=== PATIENT | male | born 1965 | race Hispanic/Latino ===

== ENCOUNTER 2020-03-24 18:08 | Inpatient (IN) | payer BC, MEDICAID ==
[~2020-03-24] VITALS: Ht 170.2 cm; Wt 84.9 kg
[2020-03-24 18:27] LABS: APPEARANCE,URINE Clear (CLEAR); BILIRUBIN,URINE Negative (NEGATIVE); COLOR,URINE Yellow (YELLOW); GLUCOSE, URINE (UA) Negative (NEGATIVE); KETONES,URINE Trace mg/dL (NEGATIVE); LEUKOCYTE ESTERASE ,URINE Negative (NEGATIVE); NITRATE,URINE Negative (NEGATIVE); OCCULT BLOOD,URINE Negative (NEGATIVE); PROTEIN,URINE Negative (NEGATIVE)
[2020-03-24 18:35] LABS: AMPHET/METH SCREEN,URINE NEGATIVE (NEGATIVE); BARBITURATE SCREEN, URINE NEGATIVE (NEGATIVE); BENZODIAZEPINES SCREEN,URINE NEGATIVE (NEGATIVE); CANNABINOID SCREEN,URINE NEGATIVE (NEGATIVE); COCAINE SCREEN,URINE NEGATIVE (NEGATIVE); OPIATE SCREEN,URINE NEGATIVE (NEGATIVE); PHENCYCLIDINE SCREEN,URINE NEGATIVE (NEGATIVE)
[2020-03-24 18:40] LABS: BASOPHILS % (AUTO) 0.6 % (0.0-5.0); EOSINOPHILS % (AUTO) 0.9 % (0.0-8.0); HEMATOCRIT 47.6 % (42-54); LYMPHOCYTES % (AUTO) 18.5 % (21.0-51.0); MEAN CORPUSCULAR HEMOGLOBIN 33.1 pg (27.0-33.0); MEAN CORPUSCULAR HGB CONC 35.7 g/dL (32.0-36.0); MEAN CORPUSCULAR VOLUME 92.8 fL (79-99); MONOCYTES % (AUTO) 6.2 % (3.0-13.0); NEUTROPHILS % (AUTO) 73.5 % (40.0-77.0); PLATELET COUNT (AUTO) 89 K/uL (130-400); RED BLOOD CELL COUNT(AUTO) 5.13 MIL/uL (4.50-6.20); RED CELL DISTRIBUTION WIDTH 13.1 % (11.0-15.5); WHITE BLOOD COUNT (AUTO) 11.8 K/uL (4.8-10.8)
[2020-03-24 18:52] LABS: CREATININE 1.2 mg/dL (0.5-1.5); POTASSIUM 3.7 mmol/L (3.5-5.1)
[2020-03-24 18:55] LABS: INR 0.99 (0.85-1.15); PARTIAL THROMBOPLASTIN TIME 27.5 SEC (26.3-35.5); PROTHROMBIN TIME 10.7 SEC (9.6-11.6)
[2020-03-24 18:57] LABS: ALBUMIN 4.4 g/dL (3.5-5.0); BILIRUBIN,TOTAL 0.9 mg/dL (0.2-1.0); MAGNESIUM 1.9 mg/dL (1.80-2.40); TOTAL PROTEIN, SERUM 7.8 g/dL (6.0-8.3)
[2020-03-24 19:03] LABS: BACTERIA,URINE Rare /HPF (None Seen); SQUAMOUS EPITHELIAL CELL,UR Few /HPF (0-2)
[2020-03-24] MEDS ORDERED: THIAMINE HCL 100 MG/ML 2ML VIAL ONE (19:06)
[2020-03-24] MEDS ORDERED: CEFTRIAXONE SODIUM 1 GM ONE (20:44)
[2020-03-24] MEDS ORDERED: LACTULOSE 20 GM/30 ML UDCUP PO PRN (20:45)
[2020-03-24] MEDS ORDERED: PHARMACY COMMUNICATION MISC PRN (20:45)
[2020-03-24] MEDS ORDERED: ACETAMINOPHEN 325 MG TAB PO PRN (20:45)
[2020-03-24] MEDS: CEFTRIAXONE SODIUM 1 GM IV SCH (20:45)
[2020-03-24] MEDS ORDERED: CHLORDIAZEPOXIDE HCL 25 MG CAP PO PRN ×2 (20:45)
[2020-03-24] MEDS ORDERED: ONDANSETRON HCL 4 MG/2 ML VIAL IV PRN (20:45)
[2020-03-24] MEDS ORDERED: HYDRALAZINE HCL 20 MG/ML VIAL IV PRN (20:45)
[2020-03-24] MEDS ORDERED: LORAZEPAM 2 MG/ML 1 ML VIAL IVP PRN ×2 (20:45)
[2020-03-24] MEDS ORDERED: ONDANSETRON HCL 4 MG/2 ML VIAL ONE (20:46)
[2020-03-24] MEDS ORDERED: MORPHINE SULFATE 2 MG/ML 1ML SYG ONE (20:46)
[2020-03-24] MEDS: FAMOTIDINE 20MG TAB 20 MG TAB PO SCH (21:00)
[2020-03-24 22:12] VITALS: BP_SYST 153; BP_SYST 155; BP_DIAS 105; BP_DIAS 106
[2020-03-25] MEDS: SODIUM CHLORIDE 0.9% 1000ML 1,000 ML IV SCH ×3 (03:48→08:39)
[2020-03-25 04:00] VITALS: BP 113/73
[2020-03-25 04:36] LABS: BASOPHILS % (AUTO) 0.4 % (0.0-5.0); EOSINOPHILS % (AUTO) 3.8 % (0.0-8.0); HEMATOCRIT 42.6 % (42-54); MEAN CORPUSCULAR HEMOGLOBIN 32.4 pg (27.0-33.0); MEAN CORPUSCULAR HGB CONC 34.7 g/dL (32.0-36.0); MEAN CORPUSCULAR VOLUME 93.2 fL (79-99); MONOCYTES % (AUTO) 7.8 % (3.0-13.0); NEUTROPHILS % (AUTO) 61.7 % (40.0-77.0); PLATELET COUNT (AUTO) 73 K/uL (130-400); RED BLOOD CELL COUNT(AUTO) 4.57 MIL/uL (4.50-6.20); RED CELL DISTRIBUTION WIDTH 13.4 % (11.0-15.5); WHITE BLOOD COUNT (AUTO) 7.3 K/uL (4.8-10.8)
[2020-03-25 04:48] LABS: POTASSIUM 3.9 mmol/L (3.5-5.1)
[2020-03-25 08:27] VITALS: BP 120/79
[2020-03-25] MEDS: THIAMINE HCL 100 MG/ML 2ML VIAL IM SCH (08:37)
[2020-03-25] MEDS: FAMOTIDINE 20MG TAB 20 MG TAB PO SCH ×2 (08:37→20:56)
[2020-03-25] MEDS: MULTIVITAMIN TABLET PO SCH (08:37)
[2020-03-25] MEDS: FOLIC ACID 1 MG TABLET PO SCH (08:37)
[2020-03-25 11:24] VITALS: BP 121/74
--- NOTE | 2020-03-25 14:45 | NUR ---
RE: US GUIDED BIOPSY OF RETROPERITONEAL MASS DR. PALMA, DR. ZAYAS, AND DR. FORMAN HAVE REVIEWED THE IMAGES. DR. PALMA AND DR. ZAYAS AGREE SEE THAT THERE IS NO MASS TO BE BIOPSIED. DR. PALMA AND DR. FORMAN RECOMMEND A CT SCAN OF ABDOMEN AND PELVIS WITH CONTRAST BE ORDERED. CALLED AND SPOKE TO SMITA AUGUSTE AND INFORMED OF RECOMMENDATIONS.
--- NOTE | 2020-03-25 14:55 | NUR ---
RADIOLOGY RECEIVED CALL FROM ZORAIDA FRAUSTO RN (RADIOLOGY) REGARDING US GUIDED BIOPSY ORDERED BY DR. VINES. SHE REPORTS THAT DR. PALMA (RADIOLOGIST) DOES NOT AGREE WITH THE INITIAL READING OF THE CT SCAN AND DOES NOT BELIEVE THAT THIS IS A MASS AND CANNOT BE BIOPSIED. DR. PALMA HAS CONSULTED WITH RADIOLOGIST WHO MADE THE INITIAL READING AND BOTH AGREE WITH THE DECISION. THEY DO, HOWEVER RECOMMEND THAT A CT OF THE ABDOMEN AND PELVIS WITH IV CONTRAST SHOULD BE DONE FOR FURTHER EVALUATION. ZORAIDA WAS NOTIFIED BY THIS NURSE THAT THE PATIENT HAS ALLERGIES TO IV CONTRAST/ IODINE.
[2020-03-25 16:16] VITALS: BP 129/90
--- NOTE | 2020-03-25 16:27 | NUR ---
DC PLAN VISITED WITH PATIENT. PATIENT LIVES WITH SPOUSE. INDEPENDENT ABLE TO PERFORM ADL'S. PATIENT HAS NO SERVICES OR DME'S. FEELS SAFE TO RETURN HOME. Addendum: 03/25/20 at 1631 by ADRY OWUSU RN CM Amended: Links added.
--- NOTE | 2020-03-25 18:20 | NUR ---
HEMATOLOGY/ ONCOLOGY DR. VINES IN TO SEE PATIENT. NEW ORDERS RECEIVED AND CARRIED OUT.
[2020-03-25] MEDS ORDERED: DiphenhydrAMINE HCL 50 MG/ML VIAL IV SCH (18:30)
[2020-03-25] MEDS ORDERED: DEXAMETHASONE SOD PHOSPHATE 4 MG/ML 1ML VIAL IVP SCH (18:30)
[2020-03-25] MEDS ORDERED: IOHEXOL-350 75 ML VIAL IV ONE (19:11)
--- NOTE | 2020-03-25 19:23 | NUR ---
RADIOLOGY/PRE MED BENADRYL 25 MG IVP AND DEXAMETHASONE 10 MG IVP GIVEN PREMED FOR CT OF ABDOMEN AND PELVIS WITH CONTRAST, DOWN TO RADIOLOGY VIA WHEEL CHAIR
--- NOTE | 2020-03-25 19:45 | NUR ---
RADIOLOGY BACK FROM RADIOLOGY, TOLERATED PROCEDURE WELL, NO SIGNS AND SYMPTOMS OF REACTION NOTED
[2020-03-25 19:50] VITALS: BP 157/89
--- NOTE | 2020-03-25 20:05 | NUR ---
UROLOGY DR. HUTCHINS TO SEE EXAMEN PATIENT WITH ORDERS, SPENT OVER ONE HOUR AT BEDSIDE WITH PATIENT EXPLAINING PLAN OF CARE AND EXPECTED OUTCOME, PATIENT VERBALIZES UNDERSTANDING VIA TEACH BACK
[2020-03-25] MEDS: CEFTRIAXONE SODIUM 1 GM IV SCH (20:56)
[2020-03-26] VITALS (7 sets, daily range): BP systolic 129–169; BP diastolic 78–96
[2020-03-26] MEDS: SODIUM CHLORIDE 0.9% 1000ML 1,000 ML IV SCH ×3 (02:44→20:14)
[2020-03-26 04:56] LABS: BASOPHILS % (AUTO) 0.2 % (0.0-5.0); EOSINOPHILS % (AUTO) 0.2 % (0.0-8.0); HEMATOCRIT 42.4 % (42-54); LYMPHOCYTES % (AUTO) 19.2 % (21.0-51.0); MEAN CORPUSCULAR HEMOGLOBIN 33.3 pg (27.0-33.0); MEAN CORPUSCULAR HGB CONC 35.1 g/dL (32.0-36.0); MEAN CORPUSCULAR VOLUME 94.6 fL (79-99); MONOCYTES % (AUTO) 1.1 % (3.0-13.0); NEUTROPHILS % (AUTO) 79.1 % (40.0-77.0); PLATELET COUNT (AUTO) 70 K/uL (130-400); RED BLOOD CELL COUNT(AUTO) 4.48 MIL/uL (4.50-6.20); RED CELL DISTRIBUTION WIDTH 13.4 % (11.0-15.5); WHITE BLOOD COUNT (AUTO) 4.5 K/uL (4.8-10.8)
[2020-03-26 05:25] LABS: ALBUMIN 3.6 g/dL (3.5-5.0); BILIRUBIN,TOTAL 0.6 mg/dL (0.2-1.0); POTASSIUM 3.9 mmol/L (3.5-5.1); TOTAL PROTEIN, SERUM 6.7 g/dL (6.0-8.3)
[2020-03-26 05:38] LABS: PLATELET MORPHOLOGY COMMENT LARGE PLTS PRESENT
[2020-03-26 06:09] LABS: HEPATITIS A ANTIBODY IGM Negative (Negative); HEPATITIS B CORE IGM Negative (Negative); HEPATITIS Bs ANTIGEN SCREEN P Negative (Negative)
[2020-03-26] MEDS: FAMOTIDINE 20MG TAB 20 MG TAB PO SCH ×2 (08:38→20:14)
[2020-03-26] MEDS: THIAMINE HCL 100 MG/ML 2ML VIAL IM SCH (08:38)
[2020-03-26] MEDS: MULTIVITAMIN TABLET PO SCH (08:39)
[2020-03-26] MEDS: FOLIC ACID 1 MG TABLET PO SCH (08:39)
[2020-03-26] MEDS: CEFTRIAXONE SODIUM 1 GM IV SCH (20:13)
[2020-03-27 04:00] VITALS: BP 136/87
[2020-03-27 05:52] LABS: HEMATOCRIT 39.6 % (42-54); MEAN CORPUSCULAR HEMOGLOBIN 32.2 pg (27.0-33.0); MEAN CORPUSCULAR HGB CONC 34.6 g/dL (32.0-36.0); MEAN CORPUSCULAR VOLUME 93.2 fL (79-99); PLATELET COUNT (AUTO) 65 K/uL (130-400); RED BLOOD CELL COUNT(AUTO) 4.25 MIL/uL (4.50-6.20); RED CELL DISTRIBUTION WIDTH 13.2 % (11.0-15.5); WHITE BLOOD COUNT (AUTO) 7.7 K/uL (4.8-10.8)
[2020-03-27 06:00] LABS: BAND NEUTROPHILS % (MANUAL) 4 % (0-2); LYMPHOCYTES % (MANUAL) 10 % (22-44); MAN.DIFF COMMENT-IMPRESSION MANUAL DIFFERENTIAL; MONOCYTES % (MANUAL) 8 % (2-9); SEGMENTED NEUTROPHILS % 78 % (40-70)
[2020-03-27 06:01] LABS: PLATELET MORPHOLOGY COMMENT DECREASED
[2020-03-27 06:13] LABS: ALBUMIN 3.5 g/dL (3.5-5.0); BILIRUBIN,TOTAL 0.8 mg/dL (0.2-1.0); POTASSIUM 3.6 mmol/L (3.5-5.1); TOTAL PROTEIN, SERUM 6.3 g/dL (6.0-8.3)
[2020-03-27 07:39] VITALS: BP 145/89
[2020-03-27] MEDS: FAMOTIDINE 20MG TAB 20 MG TAB PO SCH ×2 (09:21→19:20)
[2020-03-27] MEDS: FOLIC ACID 1 MG TABLET PO SCH (09:21)
[2020-03-27] MEDS: MULTIVITAMIN TABLET PO SCH (09:22)
[2020-03-27] MEDS: THIAMINE HCL 100 MG/ML 2ML VIAL IM SCH (09:22)
[2020-03-27] MEDS: SODIUM CHLORIDE 0.9% 1000ML 1,000 ML IV SCH ×2 (09:22→18:44)
[2020-03-27 11:16] VITALS: BP 128/82
[2020-03-27] MEDS ORDERED: FUROSEMIDE 10 MG/ML 4ML VIAL ONE (13:54)
[2020-03-27 16:26] VITALS: BP 146/98
[2020-03-27] MEDS: CEFTRIAXONE SODIUM 1 GM IV SCH (19:20)
[2020-03-27 20:00] VITALS: BP 149/85
[2020-03-27] MEDS: MORPHINE SULFATE 2 MG/ML 1ML SYG IV PRN (21:57)
[2020-03-27 23:45] VITALS: BP 154/97
[2020-03-28] MEDS: MORPHINE SULFATE 2 MG/ML 1ML SYG IV PRN ×2 (02:29→05:12)
[2020-03-28 03:47] VITALS: BP 137/88
[2020-03-28] MEDS: SODIUM CHLORIDE 0.9% 1000ML 1,000 ML IV SCH (03:51)
[2020-03-28 05:22] LABS: BASOPHILS % (AUTO) 0.7 % (0.0-5.0); EOSINOPHILS % (AUTO) 1.8 % (0.0-8.0); HEMATOCRIT 42.9 % (42-54); LYMPHOCYTES % (AUTO) 32.3 % (21.0-51.0); MEAN CORPUSCULAR HEMOGLOBIN 32.8 pg (27.0-33.0); MEAN CORPUSCULAR VOLUME 93.9 fL (79-99); PLATELET COUNT (AUTO) 66 K/uL (130-400); RED BLOOD CELL COUNT(AUTO) 4.57 MIL/uL (4.50-6.20); RED CELL DISTRIBUTION WIDTH 13.5 % (11.0-15.5)
[2020-03-28 05:38] LABS: ALBUMIN 3.7 g/dL (3.5-5.0); CREATININE 1.1 mg/dL (0.5-1.5); POTASSIUM 3.4 mmol/L (3.5-5.1); TOTAL PROTEIN, SERUM 6.6 g/dL (6.0-8.3)
[2020-03-28] MEDS ORDERED: POTASSIUM CHLORIDE 20 MEQ ERTAB PO SCH (08:15)
[2020-03-28 08:30] VITALS: BP 131/89
--- NOTE | 2020-03-28 08:31 | NUR ---
DR SHAH REVEIWED PT'S RENOGRAM AND WANTED MORE INFORMATION ON RESULTS; HE STATED THAT HE WOULD SPEAK TO THE RADIOLOGIST ABOUT RESULTS
[2020-03-28] MEDS: MULTIVITAMIN TABLET PO SCH (10:41)
[2020-03-28] MEDS: FAMOTIDINE 20MG TAB 20 MG TAB PO SCH (10:41)
[2020-03-28 11:42] VITALS: BP 138/91
--- NOTE | 2020-03-28 12:20 | NUR ---
I HAVE CALLED DR SHAH'S OFFICE TO UPDATE HIM ON PATIENT GOING BACK TO [place] AND NOT FOLLOWING UP WITH HIM AND ASKING IF PT IS OK TO BE DISCHARGED; PENDING HIS CALL BACK.
--- NOTE | 2020-03-28 14:50 | NUR ---
DR SHAH'S RECOMENDATION FOR OBSTRUCTED URETER IS STENT PLACEMENT; I SPOKE TO PT ABOUT THIS AND HE REFUSED TO HAVE DONE DUE TO COST PROBLEM AND IT BEING A TEMPORARY FIX; HE STATES INSTEAD HE IS GOING TO GO BACK HOME TO [place] AND HAVE IT TAKEN CARE OF THERE; PT SIGNED A REFUSAL OF TREATMENT FORM AND I FAXED A COPY OF THI TO DR SHAH'S OFFICE; I HAVE ALSO CALLED DR HART AND HE STATED HE WOULD COME AND WRITE A PERSCRIPTION FOR PAIN MEDS FOR PATIENT AND DISCHARGE ORDERS.
[2020-03-28 16:32] VITALS: BP 164/94
--- NOTE | 2020-03-28 16:52 | NUR ---
PT STATED UNDERSTANDING OF ALL D/C INSTRUCTIONS ON URETER BLOCKAGE; HE CHOSE NOT TO HAVE ANY TREATMENT DONE HERE AND INSTEAD IS GOING TO GO BACK TO [place] AND HAVE TREATMENT THERE INSTEAD AND HE STATED HE HAS HEALTH INSURANCE THERE THAT WILL COVER HIM; IV ACCESS REMOVED. SCRIPT FOR TRAMADOL GIVEN.
== END 2020-03-28 18:15 | disposition home or self-care (01) | DRG 463 ==
LOC: EDH 18:08 → EDHIP 20:44 → 3DH 21:57
PROVIDERS: ADMIT Internal Medicine; ATTEND Internal Medicine
DX: N13.6 Pyonephrosis (principal); D69.6 Thrombocytopenia, unspecified; K70.30 Alcoholic cirrhosis of liver without ascites; N13.8 Other obstructive and reflux uropathy; D73.1 Hypersplenism; Q63.2 Ectopic kidney; F41.9 Anxiety disorder, unspecified; I10 Essential (primary) hypertension; F10.20 Alcohol dependence, uncomplicated; Z87.442 Personal history of urinary calculi; Z87.891 Personal history of nicotine dependence; Z88.8 Allergy status to other drugs, medicaments and biological substances; Z83.3 Family history of diabetes mellitus; Z80.9 Family history of malignant neoplasm, unspecified
CPT/HCPCS: 36415; 71045; 74176; 74177; 78708; 80048; 80053; 80074; 80305; 81001; 82150; 82550; 83690; 83735; 84484; 85025; 85610; 85730; 86850; 86900; 86901; 87088; 93005; A9562; G0378; G0480; J0696; J1100; J1200; J1940; J2405; J3411; Q9967

== ENCOUNTER 2020-07-13 22:52 | Observation (INO) | payer MEDICAID ==
[2020-07-13] MEDS ORDERED: HYDRALAZINE HCL 20 MG/ML VIAL ONE (23:37)
[2020-07-13] MEDS ORDERED: OCTREOTIDE ACETATE 100 MCG/ML AMP ONE (23:39)
[2020-07-13] MEDS ORDERED: OCTREOTIDE ACETATE 200 MCG/ML 5 ML VIAL ONE (23:39)
[2020-07-14 00:06] LABS: BASOPHILS % (AUTO) 0.2 % (0.0-5.0); EOSINOPHILS % (AUTO) 0.9 % (0.0-8.0); HEMATOCRIT 41.6 % (42-54); LYMPHOCYTES % (AUTO) 19.2 % (21.0-51.0); MEAN CORPUSCULAR HEMOGLOBIN 31.9 pg (27.0-33.0); MEAN CORPUSCULAR HGB CONC 34.9 g/dL (32.0-36.0); MEAN CORPUSCULAR VOLUME 91.4 fL (79-99); MONOCYTES % (AUTO) 7.8 % (3.0-13.0); NEUTROPHILS % (AUTO) 71.7 % (40.0-77.0); PLATELET COUNT (AUTO) 48 K/uL (130-400); RED BLOOD CELL COUNT(AUTO) 4.55 MIL/uL (4.50-6.20); RED CELL DISTRIBUTION WIDTH 14.6 % (11.0-15.5); WHITE BLOOD COUNT (AUTO) 4.2 K/uL (4.8-10.8)
[2020-07-14 00:14] LABS: CREATININE 1.2 mg/dL (0.5-1.5); POTASSIUM 3.4 mmol/L (3.5-5.1)
[2020-07-14 00:18] LABS: ALBUMIN 4.1 g/dL (3.5-5.0); TOTAL PROTEIN, SERUM 7.4 g/dL (6.0-8.3)
[2020-07-14 00:21] LABS: INR 1.12 (0.85-1.15); PARTIAL THROMBOPLASTIN TIME 26.8 SEC (26.3-35.5)
[2020-07-14] MEDS ORDERED: ONDANSETRON HCL 4 MG/2 ML VIAL ONE (01:05)
[2020-07-14] MEDS: LACTATED RINGERS 1000ML 1,000 ML IV SCH ×2 (02:03→12:03)
[2020-07-14] MEDS ORDERED: ZOLPIDEM TARTRATE 5 MG TAB PO PRN (02:15)
[2020-07-14] MEDS ORDERED: ACETAMINOPHEN 325 MG TAB PO PRN ×2 (02:15)
[2020-07-14] MEDS ORDERED: DIPHENHYDRAMINE HCL 25 MG CAPSULE PO PRN (02:15)
[2020-07-14] MEDS ORDERED: LIDOCAINE HCL 2% VISCOUS 30 ML, MAG HYDROX/AL HYDROX/SIMETH 30 ML, BELLADONNA-PHENOBARB... PO PRN ×3 (02:15)
[2020-07-14] MEDS ORDERED: LACTULOSE 20 GM/30 ML UDCUP PO PRN (02:15)
[2020-07-14] MEDS ORDERED: MAG HYDROX/AL HYDROX/SIMETH ES 30 ML SUSP UDCUP PO PRN (02:15)
[2020-07-14] MEDS ORDERED: ONDANSETRON HCL 4 MG/2 ML VIAL IV PRN (02:15)
[2020-07-14] MEDS ORDERED: DiphenhydrAMINE HCL 50 MG/ML VIAL IV PRN (02:15)
[2020-07-14] MEDS ORDERED: MAG HYDROX/AL HYDROX/SIMETH 30 ML, LIDOCAINE HCL 2% VISCOUS 30 ML, DIPHENHYDRAMINE HCL ... PO PRN ×3 (02:15)
[2020-07-14] MEDS ORDERED: GUAIFENESIN-DM 200/20 MG 10 ML PO PRN (02:15)
[2020-07-14] MEDS ORDERED: NITROGLYCERIN 0.4 MG SL TAB SL PRN (02:15)
[2020-07-14] MEDS ORDERED: OCTREOTIDE ACETATE 1,250 MCG in SODIUM CHLORIDE 0.9% 250 ML IV SCH (02:30)
[2020-07-14] MEDS ORDERED: LORAZEPAM 2 MG/ML 1 ML VIAL ONE (03:07)
[2020-07-14 03:45] VITALS: BP 175/90
[2020-07-14] MEDS ORDERED: FAMO-136 PO (05:20)
[2020-07-14] MEDS ORDERED: CARV3.1262 PO (05:20)
[2020-07-14] MEDS ORDERED: LORAZEPAM 2 MG/ML 1 ML VIAL IVP PRN ×2 (06:15→10:15)
[2020-07-14] MEDS ORDERED: HYDRALAZINE HCL 20 MG/ML VIAL IV PRN (06:15)
[2020-07-14 08:00] VITALS: BP 137/91
[2020-07-14] MEDS: PANTOPRAZOLE SODIUM 80 MG in SODIUM CHLORIDE 0.9% 100 ML IV SCH ×2 (09:30→22:33)
[2020-07-14] MEDS ORDERED: THIAMINE HCL 100 MG, FOLIC ACID 1 MG, M.V.I. IV [ADULT] 10 ML in SODIUM CHLORIDE 0.9% 1... IV SCH (10:15)
[2020-07-14] MEDS ORDERED: CHLORDIAZEPOXIDE HCL 25 MG CAP PO PRN (10:15)
[2020-07-14] MEDS ORDERED: PHARMACY COMMUNICATION MISC PRN (10:15)
[2020-07-14 10:50] LABS: BASOPHILS % (AUTO) 0.9 % (0.0-5.0); EOSINOPHILS % (AUTO) 3.1 % (0.0-8.0); HEMATOCRIT 40.4 % (42-54); LYMPHOCYTES % (AUTO) 28.8 % (21.0-51.0); MEAN CORPUSCULAR HGB CONC 34.7 g/dL (32.0-36.0); MEAN CORPUSCULAR VOLUME 92.2 fL (79-99); NEUTROPHILS % (AUTO) 57.2 % (40.0-77.0); PLATELET COUNT (AUTO) 41 K/uL (130-400); RED BLOOD CELL COUNT(AUTO) 4.38 MIL/uL (4.50-6.20); RED CELL DISTRIBUTION WIDTH 14.8 % (11.0-15.5); WHITE BLOOD COUNT (AUTO) 3.2 K/uL (4.8-10.8)
[2020-07-14 10:53] LABS: CREATININE 1.2 mg/dL (0.5-1.5); POTASSIUM 3.7 mmol/L (3.5-5.1)
[2020-07-14 12:00] VITALS: BP 161/94
[2020-07-14 12:31] LABS: AMPHET/METH SCREEN,URINE NEGATIVE (NEGATIVE); BARBITURATE SCREEN, URINE NEGATIVE (NEGATIVE); BENZODIAZEPINES SCREEN,URINE POSITIVE (NEGATIVE); CANNABINOID SCREEN,URINE NEGATIVE (NEGATIVE); COCAINE SCREEN,URINE NEGATIVE (NEGATIVE); OPIATE SCREEN,URINE NEGATIVE (NEGATIVE); PHENCYCLIDINE SCREEN,URINE NEGATIVE (NEGATIVE)
[2020-07-14] MEDS ORDERED: COMPOUND IV REFRIGERATED 1 EACH IVSOLN MISC PRN (14:15)
[2020-07-14 16:00] VITALS: BP 147/94
--- NOTE | 2020-07-14 16:30 | NUR ---
MET Viri COCHRAN FOR DC PLANNING lives with elieser, number updated, [facility] has no DME, is active, [employer], DCP HOME faiza tofhiram Addendum: 07/15/20 at 1905 by ULI ANDREWS RN CM Amended: Links added.
[2020-07-14] MEDS ORDERED: POTASSIUM CHLORIDE 20 MEQ ERTAB PO SCH (20:00)
[2020-07-14 20:12] VITALS: BP 156/98
[2020-07-14 20:33] LABS: HEMATOCRIT 40.8 % (42-54)
--- NOTE | 2020-07-14 23:52 | NUR ---
CONSENT FOR EGD SIGNED AND PLACED IN CHART. CONFIRMED WITH EXCELLENCE SPECIALIST PT IS ON SCHEDULE FOR TOMORROW AM.
[2020-07-14 23:56] VITALS: BP 155/99
[2020-07-15] VITALS (12 sets, daily range): BP systolic 124–174; BP diastolic 81–110
[2020-07-15 02:41] LABS: BASOPHILS % (AUTO) 0.8 % (0.0-5.0); EOSINOPHILS % (AUTO) 3.1 % (0.0-8.0); HEMATOCRIT 38.9 % (42-54); LYMPHOCYTES % (AUTO) 23.4 % (21.0-51.0); MEAN CORPUSCULAR HEMOGLOBIN 32.4 pg (27.0-33.0); MEAN CORPUSCULAR HGB CONC 35.2 g/dL (32.0-36.0); MONOCYTES % (AUTO) 7.9 % (3.0-13.0); NEUTROPHILS % (AUTO) 64.5 % (40.0-77.0); PLATELET COUNT (AUTO) 43 K/uL (130-400); RED BLOOD CELL COUNT(AUTO) 4.23 MIL/uL (4.50-6.20); RED CELL DISTRIBUTION WIDTH 14.7 % (11.0-15.5); WHITE BLOOD COUNT (AUTO) 3.8 K/uL (4.8-10.8)
[2020-07-15] MEDS: LACTATED RINGERS 1000ML 1,000 ML IV SCH (03:01)
[2020-07-15 03:02] LABS: ALBUMIN 3.8 g/dL (3.5-5.0); BILIRUBIN,TOTAL 2.2 mg/dL (0.2-1.0); CREATININE 1.3 mg/dL (0.5-1.5); POTASSIUM 4.1 mmol/L (3.5-5.1); TOTAL PROTEIN, SERUM 6.8 g/dL (6.0-8.3)
--- NOTE | 2020-07-15 06:37 | NUR ---
NOTE T REQUESTING ICE CHIPS. INFORMED HIM THAT HE WAS NPO, MEANING HE COULD NOT HAVE ANYTHING BY MOUTH. EDUCATED WHY HE COULD NOT HAVE ANYTHING BY MOUTH AND PT STATES "WELL THEY GAVE ME ICE YESTERDAY, I DON'T KNOW WHY I CAN NOT HAVE ANY NOW". TEACHING NOT MET AT THIS TIME.
[2020-07-15] MEDS ORDERED: MULTIVITAMIN TABLET PO SCH (09:00)
[2020-07-15] MEDS ORDERED: FOLIC ACID 1 MG TABLET PO SCH (09:00)
[2020-07-15] MEDS ORDERED: PROPOFOL 10 MG/ML 20ML VIAL IV ONE (10:06)
--- NOTE | 2020-07-15 12:45 | NUR ---
PATIENT DECLINED TO WAIT OFR DC ORDERS. ESCOBAR SPOKE TO PATINET FOR A LONG TIME Addendum: 07/15/20 at 1246 by ULI ANDREWS RN CM Amended: Links added.
== END 2020-07-15 11:50 | disposition left against medical advice (07) ==
LOC: EDH 22:52 → EDHIP 22:53 → INTOOBSV 22:53 → 3CH 07-14 03:37
PROVIDERS: ADMIT Internal Medicine; ATTEND Internal Medicine
DX: I85.01 Esophageal varices with bleeding (principal); Z20.828 Contact with and (suspected) exposure to other viral communicable diseases; K74.60 Unspecified cirrhosis of liver; F10.20 Alcohol dependence, uncomplicated; F41.9 Anxiety disorder, unspecified; I10 Essential (primary) hypertension; E66.9 Obesity, unspecified; Z91.041 Radiographic dye allergy status; Z90.5 Acquired absence of kidney; Z87.891 Personal history of nicotine dependence; Z80.9 Family history of malignant neoplasm, unspecified; Z88.3 Allergy status to other anti-infective agents; Y90.9 Presence of alcohol in blood, level not specified
CPT/HCPCS: 36415 ×3; 43235; 80048; 80053 ×2; 80305; 82270; 82550; 83540; 83550; 84484; 85014; 85018; 85025 ×3; 85610; 85730; 87426; 93005; 96361 ×2; 96365; 96366 ×4; 96368; 96375 ×2; 99291; A4222; A4223; A4606; A4620; C9113 ×3; G0378 ×22; J0360 ×2; J2060 ×3; J2354 ×3; J2405 ×2; J2704; J3411; J3490; J7030 ×2; J7050; J7120 ×2